=== PATIENT | female | born 1990 | race Caucasian/White ===

== ENCOUNTER 2019-10-27 15:10 | Inpatient (IN) ==
[2019-10-27] MEDS ORDERED: OXYTOCIN 30 UNITS/500 ML BAG IV PRN (16:04)
[2019-10-27 16:26] LABS: Hematocrit (blood only) 33.8 % (37-47); Hemoglobin 10.8 g/dL (12.0-16.0); Mean Corpuscular Hemoglobin 27.3 pg (25-34); Mean Corpuscular Volume 85.4 fL (80-100); Mean Platelet Volume 10.8 fL (7.4-10.4); Platelet Count 277 K/uL (130-400); RDW Coefficient of Variation 13.7 % (11.5-14.5); Red Blood Count 3.96 M/uL (4.2-5.4); White Blood Count 12.91 K/uL (4.8-10.8)
[2019-10-27] MEDS: LACTATED RINGER'S 1,000 ML IV PRN (23:30)
[2019-10-27] MEDS ORDERED: ePHEDrine sulfate 50 MG/ML AMP ONE (23:31)
[2019-10-27] MEDS ORDERED: fentaNYL citrate 100 MCG/2 ML VIAL ONE (23:31)
[2019-10-27] MEDS ORDERED: BUPIVACAINE 0.25% 30 ML VIAL ONE (23:31)
[2019-10-27] MEDS ORDERED: fentaNYL 2MCG/ML ROPIV 1.25MG/ML 100 ML BAG EPI ONE (23:32)
--- NOTE | 2019-10-27 23:55 | Anesthesiology Consultation ---
Date of Service October 27, 2019 Assessment & Plan ASA ASA2 Proposed Anesthesia Anesthesia Type: Labor Epidural Risk / Benefits Reviewed With: PT / POA / Parent / Guardian, Accepts Plan and Informed Consent Obtained History Height/Weight Height: 5 ft 2 in Weight: 70.307 kg Allergies Allergy/AdvReac Type Severity Reaction Status Date / Time No Known Allergies Allergy Verified 10/27/19 15:25 Medications Home Medications Medication Instructions Recorded Confirmed Last Taken vit-iron fum-folic ac tab 10/27/19 10/27/19 [ Vitamin] Active Medications Generic Name Dose Route Start Last Admin Trade Name Freq PRN Reason Stop Dose Admin Lactated Ringer's 1,000 mls @ 125 mls/hr 10/27/19 16:04 10/28/19 00:48 Lr IV 10/29/19 16:03 999 mls/hr .Q8H PRN Administration L&D Protocol Protocol Past Medical History Medical History Migraines Exercise / Class Metabolic Activity II 4-5 Yardwork/Stairs/Walk up hill Past Family History Family History Other No significant family history Past Anesthesia History No Hx of Anesthesia Complications and No Family Hx of Anesthesia Complications History of PONV No Hx of PONV and No Hx of Motion Sickness Social History Smoking Status: Never smoker Hx Alcohol Use: No Hx Substance Use: No Review of Systems denies fever/cough/ colds/ chest pain/ SOB/ LINDA Constitutional: no fever and no chills Respiratory: no cough and no dyspnea denies LINDA Cardiovascular: no chest pain and no dyspnea on exertion Physical Exam Vital Signs Last Vital Signs Temp 36.8 C 10/27/19 22:21 Pulse 95 H 10/28/19 00:08 Resp 18 10/27/19 20:29 BP 148/75 H 10/28/19 00:08 Pulse Ox 99 10/28/19 00:08 ENMT Mouth: no TMJ abnormality and no dentition abnormality Thyromental Distance: > or= 3.5 Finger Breadths Mallampati Class: II Neck neck extension not limited Respiratory normal respiratory effort; no respiratory distress Auscultation: lungs clear to auscultation bilaterally Cardiovascular Rate/Rhythm: regular rate and regular rhythm Neurologic moves all extremities Psychiatric Orientation: alert and oriented x 3 Testing Laboratory Results 10/27/19 16:16
[2019-10-28] MEDS: LACTATED RINGER'S 1,000 ML IV PRN ×2 (00:48→06:44)
[2019-10-28] MEDS ORDERED: DiphenhydrAMINE HCL 50 MG/ML VIAL IV PRN ×3 (01:01→10:53)
[2019-10-28] MEDS ORDERED: fentaNYL 2MCG/ML ROPIV 1.25MG/ML 100 ML BAG EPI PRN (01:01)
[2019-10-28] MEDS ORDERED: NALBUPHINE HCL INJ 10 MG/ML AMP IV PRN ×2 (01:01→10:53)
[2019-10-28] MEDS ORDERED: NALOXONE HCL 0.4 MG/1 ML VIAL/CARP IV PRN ×2 (01:01→10:53)
[2019-10-28] MEDS ORDERED: NALOXONE HCL 1 MG in SODIUM CHLORIDE 0.9% 1000ML 1,000 ML IV PRN ×2 (01:01→10:53)
[2019-10-28] MEDS ORDERED: ePHEDrine sulfate 50 MG/ML AMP IV PRN ×2 (01:01→10:53)
[2019-10-28] MEDS ORDERED: ONDANSETRON INJ 2 MG/ML 2 ML VIAL IV PRN ×3 (01:01→10:53)
[2019-10-28] MEDS ORDERED: OXYTOCIN 30 UNITS/500 ML BAG IV PRN (06:37)
[2019-10-28] MEDS ORDERED: AMPICILLIN 1,000 MG in SODIUM CHLOR 0.9% AD-VAN 50 ML IV ONE (07:00)
[2019-10-28] MEDS ORDERED: CITRIC ACID/SODIUM CITRATE 15 ML UDC ONE (08:42)
[2019-10-28] MEDS ORDERED: LIDOCAINE/EPINEPHRINE 2% 1:200,000 20 ML SDV ONE (08:47)
[2019-10-28] MEDS ORDERED: cefOXitin 2,000 MG in DEXTROSE 5% 50 ML IV ONE (09:00)
[2019-10-28] MEDS ORDERED: CITRIC ACID/SODIUM CITRATE 15 ML UDC PO ONE (09:00)
[2019-10-28 09:03] LABS: Hematocrit (blood only) 33.5 % (37-47); Mean Corpuscular Hemoglobin 27.4 pg (25-34); Mean Corpuscular Hgb Conc 32.8 g/dL (32-36); Mean Corpuscular Volume 83.5 fL (80-100); Mean Platelet Volume 10.7 fL (7.4-10.4); Platelet Count 297 K/uL (130-400); RDW Coefficient of Variation 13.8 % (11.5-14.5); RDW Standard Deviation 41.5 fL (36.4-46.3); Red Blood Count 4.01 M/uL (4.2-5.4); White Blood Count 22.83 K/uL (4.8-10.8)
[2019-10-28] MEDS ORDERED: PHENYLEPHRINE HCL 10 MG/ML VIAL ONE (09:07)
[2019-10-28] MEDS ORDERED: ePHEDrine sulfate 50 MG/ML AMP ONE (09:07)
[2019-10-28] MEDS ORDERED: MIDAZOLAM HCL 1 MG/ML 2ML VIAL ONE (09:16)
[2019-10-28] MEDS ORDERED: MoRPHine SULFATE PF 1 MG/ML 10 ML AMP/VIAL ONE (09:20)
[2019-10-28] MEDS ORDERED: fentaNYL citrate 100 MCG/2 ML VIAL ONE (09:26)
[2019-10-28] MEDS ORDERED: SUCCINYLCHOLINE 100MG/5ML SYR ONE (09:41)
[2019-10-28] MEDS ORDERED: OXYTOCIN 10 UNITS/ML VIAL ONE ×5 (09:41→10:13)
[2019-10-28] MEDS ORDERED: DEXAMETHASONE SOD INJ 4 MG/ML VIAL ONE (09:41)
[2019-10-28] MEDS ORDERED: ONDANSETRON INJ 2 MG/ML 2 ML VIAL ONE (09:41)
[2019-10-28] MEDS ORDERED: PROPOFOL IV EMULSION 10 MG/ML 20 ML VIAL IV ONE (09:41)
[2019-10-28] MEDS ORDERED: OXYTOCIN 10 UNITS/ML VIAL IM ONE (09:42)
[2019-10-28] MEDS ORDERED: KETOROLAC 30 MG/ML VIAL ONE (09:43)
[2019-10-28] MEDS ORDERED: MAGNESIUM HYDROXIDE SUSP 30 ML UDC PO PRN (09:57)
[2019-10-28] MEDS ORDERED: KETOROLAC 30 MG/ML VIAL IV PRN (09:57)
[2019-10-28] MEDS ORDERED: MEPERIDINE HCL 50 MG/ML CARP IV PRN (09:57)
[2019-10-28] MEDS ORDERED: DIPHTHERIA/TETANUS/PERTUSSIS 0.5 ML SYR/VIAL IM ONE (09:57)
[2019-10-28] MEDS ORDERED: SENNA 8.6 MG TAB PO PRN (09:57)
[2019-10-28] MEDS ORDERED: ZOLPIDEM TARTRATE 5 MG TAB PO PRN (09:57)
[2019-10-28] MEDS ORDERED: PROMETHAZINE HCL 25 MG in SODIUM CHLORIDE 0.9% 50 ML IV PRN (09:57)
[2019-10-28] MEDS ORDERED: BENZOCAINE 20% AER SPR 82.5 GM CAN EXT PRN (09:57)
[2019-10-28] MEDS ORDERED: HYDROCORTISONE ACETATE 25 MG SUPP PR PRN (09:57)
[2019-10-28] MEDS ORDERED: SUPERCREAM 0.870% 15 GM JAR EXT PRN (09:57)
--- NOTE | 2019-10-28 09:57 | Post Operative Brief Note ---
Immediate Post Op Note v1 Date of Surgery October 28, 2019 Pre & Post Diagnosis cephalopelvic Operation Date: 10/28/19 08:40 <No data on this case meets the specified criteria> cephalopelvic disproportion amnionitis I identified the patient and participated in the time-out.: Yes Procedure Operation Date: 10/27 p Section in LD - Nain Barrett MD Surgeon Nain Barrett MD Continuity Director Dr Carrasco Estimated Blood Loss 600 Findings Consistent with Post-Op Diagnosis Fluids 1200 ml Specimens placenta culture Drains Fountain Catheter Anesthesia Type General Complications none Disposition Accompanied Patient To Recovery: No Disposition: Recovery Room
[2019-10-28] MEDS ORDERED: LACTATED RINGER'S 1,000 ML IV SCH (10:00)
[2019-10-28 10:32] LABS: Basophils # (auto) 0.02 K/uL (0-0.2); Basophils % (auto) 0.1 %; Immature Granulocytes # (auto) 0.14 K/uL (0.00-0.02); Immature Granulocytes % (auto) 0.6 %; Lymphocytes # (auto) 1.65 K/uL (1.2-3.4); Lymphocytes % (auto) 7.2 %; Microcytosis Present; Monocytes # (auto) 1.27 K/uL (0.11-0.59); Monocytes % (auto) 5.6 %; Neutrophils # (auto) 19.75 K/uL (1.4-6.5); Neutrophils % (auto) 86.5 %
[2019-10-28] MEDS ORDERED: LACTATED RINGER'S 500 ML IV PRN (10:53)
[2019-10-28] MEDS ORDERED: ACETAMINOPHEN 1000 MG/100 ML IV IV PRN (10:53)
[2019-10-28] MEDS ORDERED: NALOXONE HCL 0.08 MG in SYRINGE 1.8 ML IV PRN (10:53)
[2019-10-28] MEDS ORDERED: MoRPHine SULFATE PF 1 MG/ML 10 ML AMP/VIAL EPI ONE (10:53)
[2019-10-28] MEDS ORDERED: HYDROmorphone INJ 0.5 MG/0.5 ML SYR IV PRN (10:53)
--- NOTE | 2019-10-28 10:56 | Anesthesia Procedure Note ---
Date of Service October 28, 2019 Anesthesia Post Epidural Note Vital Signs Vital Signs: Temp Pulse Resp BP Pulse Ox 38.1 C H 126 H 20 109/60 98 10/28/19 07:03 10/28/19 10:50 10/28/19 08:30 10/28/19 10:46 10/28/19 10:50 Pain Intensity Back: Pain Intensity: 6 Notes Mental Status: alert / awake / arousable and participated in evaluation Nausea / Vomiting: adequately controlled Pain: adequately controlled Airway Patency, RR, SpO2: stable & adequate BP & HR: stable & adequate Hydration State: stable & adequate Neuraxial Anesthesia: was administered and sensory block is resolving Anesthetic Complications: no major complications apparent and Pt Satisfied with anesthetic care Epidural: Removed without complications and With tip intact Notes: Epidural site clean, dry and intact. No signs of edema, erythema or bruising at insertion site. Pt instructed to request anesthesia if she has residual lower extremity numbness or if she develops lower extremity pain or weakness, back pain or headache.
--- NOTE | 2019-10-28 10:56 | Anesthesiology Progress Note ---
Date of Service October 28, 2019 Anesthesia Post Procedure Vital Signs Vital Signs: Temp Pulse Resp BP Pulse Ox 10/28/19 10:50 126 H 98 10/28/19 10:46 105 H 109/60 10/28/19 10:45 102 H 98 10/28/19 10:42 99 H 94 10/28/19 10:40 106 H 96 10/28/19 10:36 115 H 108/62 10/28/19 10:34 105 H 100 10/28/19 08:54 92 H 147/84 H 10/28/19 08:53 93 H 142/80 H 10/28/19 08:52 103 H 92 10/28/19 08:51 102 H 120/77 100 10/28/19 08:46 99 H 98 10/28/19 08:41 103 H 97 10/28/19 08:38 107 H 121/78 10/28/19 08:36 105 H 98 10/28/19 08:31 99 H 99 10/28/19 08:30 20 10/28/19 08:26 102 H 97 10/28/19 08:23 111 H 133/80 10/28/19 08:21 120 H 98 10/28/19 08:16 179 H 98 10/28/19 08:11 125 H 97 10/28/19 08:10 114 H 83 L 10/28/19 08:08 110 H 148/78 H 10/28/19 08:06 157 H 97 10/28/19 08:01 126 H 98 10/28/19 08:00 18 10/28/19 07:57 160 H 85 L 10/28/19 07:56 144 H 96 10/28/19 07:53 102 H 139/74 10/28/19 07:51 132 H 97 10/28/19 07:50 118 H 86 L 10/28/19 07:46 81 98 10/28/19 07:44 118 H 92 10/28/19 07:41 157 H 98 10/28/19 07:39 107 H 87 L 10/28/19 07:38 109 H 132/65 10/28/19 07:36 119 H 99 10/28/19 07:31 107 H 98 10/28/19 07:30 22 10/28/19 07:26 152 H 99 10/28/19 07:23 162 H 137/68 05/20 07:22 120 H 89 L 10/28/19 07:21 112 H 98 10/28/19 07:16 123 H 98 10/28/19 07:15 118 H 89 L 10/28/19 07:11 95 H 98 10/28/19 07:09 105 H 91 10/28/19 07:08 100 H 124/77 10/28/19 07:06 92 H 98 10/28/19 07:03 38.1 C H 16 10/28/19 07:01 173 H 77 L 10/28/19 06:56 132 H 98 10/28/19 06:51 105 H 98 10/28/19 06:46 147 H 99 10/28/19 06:41 153 H 98 10/28/19 06:37 125 H 131/75 10/28/19 06:36 150 H 98 10/28/19 06:31 107 H 98 10/28/19 06:29 111 H 90 10/28/19 06:26 103 H 97 10/28/19 06:23 115 H 138/72 10/28/19 06:22 134 H 94 10/28/19 06:21 91 H 98 10/28/19 06:17 105 H 87 L 10/28/19 06:16 92 H 98 10/28/19 06:11 128 H 93 10/28/19 06:10 38.4 C H 24 10/28/19 06:09 100 H 137/63 10/28/19 06:06 104 H 97 10/28/19 06:04 102 H 81 L 10/28/19 06:01 106 H 98 10/28/19 05:59 101 H 74 L 10/28/19 05:56 97 H 97 10/28/19 05:53 105 H 132/76 10/28/19 05:52 150 H 93 10/28/19 05:51 147 H 96 10/28/19 05:46 123 H 84 L 10/28/19 05:41 104 H 97 10/28/19 05:40 37.5 C 24 10/28/19 05:38 130 H 127/84 10/28/19 05:36 107 H 97 10/28/19 05:31 116 H 97 10/28/19 05:28 120 H 93 05/19/20 05:26 109 H 97 10/28/19 05:23 169 H 171/76 H 93 0520 05:21 129 H 97 20 05:16 117 H 97 20 05:12 133 H 132/88 05 05:11 150 H 97 10/28/19 05:10 37.5 C 22 10/28/19 05:06 114 H 98 10/28/19 05:00 132 H 97 10/28/19 04:55 118 H 97 10/28/19 04:48 109 H 98 10/28/19 04:43 129 H 96 10/28/19 04:38 112 H 98 10/28/19 04:33 111 H 97 10/28/19 04:30 37.0 C 18 10/28/19 04:28 129 H 131/59 L 97 10/28/19 04:23 115 H 167/133 H 99 10/28/19 04:18 150 H 98 10/28/19 04:17 146 H 91 10/28/19 04:13 122 H 100 10/28/19 04:08 102 H 99 10/28/19 04:06 99 H 91 10/28/19 04:03 92 H 99 10/28/19 04:00 105 H 112/74 05 03:58 123 H 98 10/28/19 03:53 113 H 100 10/28/19 03:48 109 H 98 10/28/19 03:43 94 H 122/63 100 0520 03:38 83 97 10/28/19 03:33 78 99 0520 03:30 36.9 C 18 10/28/19 03:28 73 98 0519/20 03:27 36.8 C 16 10/28/19 03:23 71 113/73 98 0519/20 03:18 69 98 0519/20 03:13 79 99 0519/20 03:09 69 110/68 05/20 03:08 70 99 05/20 03:03 66 98 05/20 02:58 77 99 0519/20 02:54 76 120/77 0519/20 02:53 73 98 0519/20 02:48 69 98 0519/20 02:43 84 98 05/19/20 02:39 71 114/69 05/19/20 02:38 68 97 05/19/20 02:33 83 98 05/19/20 02:28 73 99 05/19/20 02:23 73 105/62 97 05/19/20 02:18 67 98 05/19/20 02:13 68 98 05/19/20 02:08 65 104/63 98 05/19/20 02:03 71 98 05/19/20 01:58 71 99 05/19/20 01:54 68 109/65 05/19/20 01:53 67 99 05/19/20 01:48 69 99 05/19/20 01:43 68 99 05/19/20 01:38 64 106/63 98 05/19/20 01:33 64 98 05/19/20 01:30 37.0 C 16 0520 01:28 68 98 05/19/20 01:23 68 102/57 L 98 05/19/20 01:18 65 99 05//20 01:13 67 100 05/20 01:08 66 103/56 L 98 05/20 01:03 66 98 05/19/20 00:58 68 98 05/19/20 00:53 75 106/57 L 98 10/27/20 00:48 72 99 05/20 00:43 68 99 05/20 00:38 88 133/67 100 05/19/20 00:33 76 100 05/19/20 00:30 36.9 C 16 20 00:28 85 100 05/19/20 00:23 71 132/60 100 0519/20 00:21 83 139/67 05/19/20 00:18 101 H 100 0520 00:16 147/92 H 0519/20 00:14 93 H 147/89 H 0519/20 00:13 78 100 0519/20 00:12 97 H 136/83 0520 00:08 95 H 148/75 H 99 0519/20 00:06 91 H 163/83 H 0519/20 00:03 83 100 0519/20 00:01 83 163/79 H 0518/20 23:58 97 H 97 0518/20 23:57 90 94 05/18/20 23:56 81 162/84 H 10/27/19 23:53 88 100 10/27/19 23:48 82 99 10/27/19 23:43 85 160/73 H 99 10/27/19 23:39 83 91 10/27/19 23:38 80 112/68 100 10/27/19 23:33 78 100 10/27/19 23:02 100 H 149/97 H 10/27/19 22:55 87 173/92 H 10/27/19 22:21 36.8 C 10/27/19 20:29 36.9 C 18 127/70 10/27/19 15:26 36.7 C 18 10/27/19 15:17 77 113/76 Pain Intensity Back: Pain Intensity: 6 Transfer of Care Handoff Completed per policy Notes Mental Status: alert / awake / arousable and participated in evaluation Patient Amnestic to Procedure: Yes Nausea / Vomiting: adequately controlled Pain: adequately controlled Airway Patency, RR, SpO2: stable & adequate BP & HR: stable & adequate Hydration State: stable & adequate Anesthetic Complications: no major complications apparent and Pt Satisfied with anesthetic care
[2019-10-28] MEDS ORDERED: SODIUM CHLORIDE 0.9% 1000ML 1,000 ML IV SCH (11:00)
[2019-10-28] MEDS ORDERED: DC INTRASPINAL MORPHINE SCH (11:00)
[2019-10-28] MEDS ORDERED: NO NARCOTICS OR SEDATIVES SCH (11:00)
[2019-10-28] MEDS: OXYTOCIN 20 UNITS in LACTATED RINGER'S 1,000 ML IV SCH ×2 (12:55→21:46)
--- NOTE | 2019-10-28 13:05 | Operative Report (OR) ---
DATE OF OPERATION: 10/28/2019 PROCEDURE: Primary low segment section. INDICATIONS FOR SURGERY: Cephalopelvic disproportion, suspected amnionitis. PREOPERATIVE DIAGNOSIS: Cephalopelvic disproportion at 39 weeks 3 days and amnionitis. POSTOPERATIVE DIAGNOSES: Same, delivered a live male . SURGEON: Dr. Barrett. DIKE SUPERVISOR: Giacomo Little. ESTIMATED BLOOD LOSS: 600 mL ANESTHESIA: Spinal epidural combined with general. OPERATIVE FINDINGS AND PROCEDURE: The patient was brought to the OR table, correctly identified by armband and conversation. Compression stockings and Fountain catheter was inserted aseptically and connected by gravity drainage. The epidural was topped off. Lower abdomen was painted with an alcohol based sterilizing solution, draped in the usual sterile fashion. Despite having topped off the epidural, we did not get inadequate pain relief to do the operation, so we went to general anesthesia and intubational anesthesia. We then made a Pfannenstiel incision, carried it down to the anterior fascia by sharp dissection. Hemostasis was secured by electrocauterization. Fascia was incised transversely from the underlying muscle by blunt and sharp dissection. Recti muscles were in the midline exposing peritoneum which was carefully raised and entered. Incision was then made above the vesicouterine fold. Bladder was undermined bluntly and pushed out of the operative field. Lower uterine segment was scored. Brush Hand's hand was inserted into the pelvis. The head was wedged in right occiput transverse position and had to be rotated and then the head came out. The body came out without difficulty. breathing and cried spontaneously, was attended to by the organization development consultant, Dr. Mora who was scrubbed and present at the time of delivery. Cord blood was taken. Placenta was removed manually. The shiny side of the placenta was cultured. Uterus, tubes, and ovaries were brought out through the incision. Uterus was cleansed with a clean sponge. Ten units of Pitocin was injected into the myometrium. A chromic gut was used to approximate the myometrial layer with a continuous interlocking suture. Then a layer over this was used to approximate the fascial layer with a heavy duty Vicryl. Also one [id number] Vicryl was used to place on the right side to complete the hemostatic process. Following this, incision looked good. Peritoneal edges were then restored with a continuous 3-0 chromic, restored the integrity of the vesicouterine fold. The pelvis was cleansed of all blood clots and debris. Tubes and ovaries inspected and found to be normal. Uterus, tubes, and ovaries were reinserted into the abdomen. Careful anatomical approximation of the anterior abdominal wall was performed. Peritoneum was closed with a mattress suture of chromic catgut. Recti muscles approximated with interrupted [id number] suture of chromic catgut. The fascia was closed with continuous interlocking suture of Vicryl on each side, tied in the midline. SubQ was approximated with a running plain. Skin edge approximated with staple clips. I attest to the content of the Intraoperative Record and any orders documented therein. Any exception s are noted below.
--- NOTE | 2019-10-28 13:08 | History and Physical Report ---
DATE OF ADMISSION: 10/28/2019 CHIEF COMPLAINT: Intrauterine at term, arrest of labor secondary to cephalopelvic disproportion. HISTORY OF PRESENT ILLNESS: The patient is a 28-year-old 1, para 0. General health is good. No known drug allergies. Uneventful course. Due date was 10/29/2019. She was admitted in spontaneous labor. Eventually she had epidural anesthesia for pain control. She then had artificial rupture of the membranes when she was about 7 cm, fluid was clear. She had her good regular contractions and she started to push. She pushed for approximately 4 hours. She did develop a temperature during this time. A cath urine was taken for culture and she was given 2 grams of ampicillin. Her tachycardia came down. She had good variability; however, she had a mid pelvis arrest. There was a large amount of molding. You could see some of the head, but every time she stopped pushing, the head disengaged from the mid pelvis. After pushing for over 4 hours without significant progress, we made a diagnosis of cephalopelvic disproportion secondary to mid pelvis arrest. She was scheduled for primary low segment section. PAST MEDICAL HISTORY: No known drug allergies. No previous surgery. Medical history: Rheumatic fever, heart disease, heart murmur, diabetes, tuberculosis. SOCIAL HISTORY: No smoking. No excessive alcohol intake. Works for [employer]. FAMILY HISTORY: Mom is 65, has high blood pressure, was diagnosed with breast cancer 5 years ago. Father is 65 in good health. One sister in good health. REVIEW OF SYSTEMS: HEAD: No symptoms of frequent or severe headaches. EYES: No symptoms of blurred vision, double vision. EARS: No history of frequent ear infections. PHYSICAL EXAMINATION: GENERAL: Well-developed, well-nourished 28-year-old white female, alert, oriented x3, in intermittent periods of distress due to contractions, appears to be exhausted from pushing. HEART: Had regular rhythm. LUNGS: Clear to auscultation and percussion. ABDOMEN: Revealed an estimated weight possibly of over 8 pounds. BACK: There was no CVA tenderness. EXTREMITIES: There was no calf tenderness. PELVIC: Revealed a large amount of molding in a right occiput transverse position. IMPRESSIONS OF THIS CASE: Intrauterine at term, possible early amnionitis, an arrest of labor secondary to cephalopelvic disproportion.
[2019-10-28] MEDS: SIMETHICONE 80 MG CHEW PO SCH ×3 (16:55→21:28)
[2019-10-28] MEDS: KETOROLAC 30 MG/ML VIAL IV PRN (19:44)
[2019-10-28] MEDS: DOCUSATE SODIUM 100 MG CAP PO SCH (21:29)
[2019-10-29] MEDS: KETOROLAC 30 MG/ML VIAL IV PRN (03:35)
[2019-10-29] MEDS ORDERED: CITRIC ACID/SODIUM CITRATE 15 ML UDC PO SCH (06:00)
[2019-10-29 07:02] LABS: Basophils # (auto) 0.02 K/uL (0-0.2); Basophils % (auto) 0.1 %; Eosinophils # (auto) 0.02 K/uL (0-0.5); Eosinophils % (auto) 0.1 %; Hematocrit (blood only) 25.3 % (37-47); Hemoglobin 8.1 g/dL (12.0-16.0); Immature Granulocytes % (auto) 0.5 %; Lymphocytes # (auto) 1.65 K/uL (1.2-3.4); Lymphocytes % (auto) 8.1 %; Mean Corpuscular Hemoglobin 27.5 pg (25-34); Mean Corpuscular Volume 85.8 fL (80-100); Mean Platelet Volume 10.6 fL (7.4-10.4); Monocytes # (auto) 1.53 K/uL (0.11-0.59); Monocytes % (auto) 7.5 %; Neutrophils # (auto) 17.09 K/uL (1.4-6.5); Neutrophils % (auto) 83.7 %; Platelet Count 216 K/uL (130-400); RDW Standard Deviation 43.2 fL (36.4-46.3); Red Blood Count 2.95 M/uL (4.2-5.4); White Blood Count 20.41 K/uL (4.8-10.8)
[2019-10-29] MEDS: DOCUSATE SODIUM 100 MG CAP PO SCH ×2 (07:31→20:56)
[2019-10-29] MEDS: FERROUS SULFATE 325 MG TAB PO SCH (07:31)
[2019-10-29] MEDS: PRENATAL VITAMIN 1 TAB PO SCH (07:31)
[2019-10-29] MEDS: SIMETHICONE 80 MG CHEW PO SCH ×4 (07:31→22:24)
[2019-10-29] MEDS: OXYCODONE/ACETAMINOPHEN 5mg/325mg TAB PO PRN ×4 (07:32→19:37)
[2019-10-29] MEDS: IBUPROFEN 600 MG TAB PO PRN ×4 (07:33→19:36)
--- NOTE | 2019-10-29 08:23 | Obstetrical Progress Note ---
Date of Service October 29, 2019 Assessment & Plan Admission and Anticipated Discharge Date Admission Date: October 27, 2019 Physical Exam Physical Exam: abdomen soft and non tender passing flatus no calf tenderness ambulating well vaginal bleeding is scant hgb 8.1 Results & Data ([facility]) Vital Signs (Past 12 Hours) Vital Signs Temp Pulse Resp BP Pulse Ox 10/29/19 05:00 18 97 10/29/19 04:40 18 96 10/29/19 03:30 36.8 C 77 18 92/54 L 97 10/29/19 02:30 18 97 10/29/19 01:30 18 97 10/29/19 00:40 18 98 10/28/19 23:45 36.7 C 87 18 92/54 L 97 10/28/19 22:45 18 97 10/28/19 21:30 18 97 10/28/19 20:30 18 98
--- NOTE | 2019-10-29 09:11 | Anesthesiology Progress Note ---
Date of Service October 29, 2019 Anesthesia Post Procedure Vital Signs Vital Signs: Temp Pulse Pulse Resp BP BP Pulse Ox 10/29/19 07:40 97.9 F 80 18 102/64 97 10/29/19 05:00 18 97 10/29/19 04:40 18 96 10/29/19 03:30 98.2 F 77 18 92/54 L 97 10/29/19 02:30 18 97 10/29/19 01:30 18 97 10/29/19 00:40 18 98 10/28/19 23:45 98.1 F 87 18 92/54 L 97 10/28/19 22:45 18 97 10/28/19 21:30 18 97 10/28/19 20:30 18 98 10/28/19 19:30 98.6 F 97 H 18 109/61 98 10/28/19 17:55 18 97 10/28/19 16:35 16 97 10/28/19 15:30 97.9 F 100 H 18 95 10/28/19 15:00 16 97 10/28/19 14:00 18 98 10/28/19 13:00 98.2 F 79 18 107/65 98 10/28/19 12:36 84 119/59 L 10/28/19 12:35 83 97 10/28/19 12:33 98.2 F 16 10/28/19 12:30 75 98 10/28/19 12:26 82 109/58 L 10/28/19 12:25 78 98 10/28/19 12:20 85 99 10/28/19 12:17 99 H 94 10/28/19 12:16 85 111/58 L 10/28/19 12:15 83 98 10/28/19 12:10 81 99 10/28/19 12:06 85 125/58 L 10/28/19 12:05 78 98 10/28/19 12:03 16 10/28/19 12:01 96 H 118/68 10/28/19 12:00 96 H 97 10/28/19 11:55 77 99 10/28/19 11:50 78 98 10/28/19 11:46 164 H 107/57 L 10/28/19 11:45 83 98 10/28/19 11:40 87 99 10/28/19 11:36 173 H 108/57 L 10/28/19 11:35 86 98 10/28/19 11:33 97.7 F 16 10/28/19 11:30 89 97 10/28/19 11:26 92 H 105/71 10/28/19 11:25 91 H 97 10/28/19 11:23 18 10/28/19 11:20 103 H 97 10/28/19 11:16 90 117/65 10/28/19 11:15 97 H 97 10/28/19 11:13 18 10/28/19 11:10 99 H 96 10/28/19 11:08 113 H 132/67 10/28/19 11:05 112 H 96 10/28/19 11:03 18 10/28/19 11:00 103 H 97 10/28/19 10:57 104 H 118/63 10/28/19 10:55 110 H 97 10/28/19 10:53 18 10/28/19 10:50 126 H 98 10/28/19 10:46 105 H 109/60 10/28/19 10:45 102 H 98 10/28/19 10:43 17 10/28/19 10:42 99 H 94 10/28/19 10:40 106 H 96 10/28/19 10:36 115 H 108/62 10/28/19 10:34 105 H 100 10/28/19 10:33 97.7 F 17 Pain Intensity Back: Pain Intensity: 6 Upper Medial Abdomen: Pain Intensity: 1 Transfer of Care Handoff Completed per policy Notes Mental Status: alert / awake / arousable and participated in evaluation Patient Amnestic to Procedure: Yes Nausea / Vomiting: adequately controlled Pain: adequately controlled Airway Patency, RR, SpO2: stable & adequate BP & HR: stable & adequate Hydration State: stable & adequate Anesthetic Complications: no major complications apparent and Pt Satisfied with anesthetic care
[2019-10-29] MEDS ORDERED: bisacodyL 5 MG TABEC PO SCH (20:00)
[2019-10-30] MEDS: IBUPROFEN 600 MG TAB PO PRN ×4 (00:28→13:14)
[2019-10-30] MEDS: OXYCODONE/ACETAMINOPHEN 5mg/325mg TAB PO PRN ×4 (00:28→13:13)
[2019-10-30 06:31] LABS: Hematocrit (blood only) 25.5 % (37-47); Hemoglobin 8.1 g/dL (12.0-16.0)
[2019-10-30] MEDS: SIMETHICONE 80 MG CHEW PO SCH ×2 (08:43→13:13)
[2019-10-30] MEDS: DOCUSATE SODIUM 100 MG CAP PO SCH (08:43)
[2019-10-30] MEDS: FERROUS SULFATE 325 MG TAB PO SCH (08:44)
[2019-10-30] MEDS: PRENATAL VITAMIN 1 TAB PO SCH (08:47)
--- NOTE | 2019-10-30 08:52 | Obstetrical Progress Note ---
Date of Service October 30, 2019 Assessment & Plan Admission and Anticipated Discharge Date Admission Date: October 27, 2019 Physical Exam Physical Exam: abdomen soft and non tender incision is clean and dry no calf tenderness ambulating well vaginal bleeding is scant hgb 8.1 Results & Data ([facility]) Vital Signs (Past 12 Hours) Vital Signs Temp Pulse Resp BP Pulse Ox 10/29/19 23:55 36.8 C 86 16 109/67 97
--- NOTE | 2019-10-30 09:54 | Discharge Summary (DS) ---
Mrs. Irene was admitted in spontaneous labor at term. Eventually, she received epidural for pain control. Her membranes were ruptured surgically. Fluid was clear and she went to full dilatation. Her contractions were augmented with IV Pitocin and she had good regular labor pattern; however, she had a mid pelvis arrest and had cephalopelvic disproportion. She also had an elevated temperature prior to delivery. A cath urine was taken for culture and she was given ampicillin 2 grams. Following this about an hour or so later she was taken to the OR where she underwent a primary low segment section. She was given Mefoxin preoperatively in addition to the ampicillin, she already had. She had epidural, but it was not adequate for , so she underwent general. Under general anesthesia, a live was delivered who is in good condition. Placental culture was taken at that time. Eventually, the urine culture and the placental culture did not grow out anything. Postoperatively, she did not get any additional antibiotics and she remained afebrile. Her bowel sounds returned promptly. Her preoperative hemoglobin was 11. Postoperatively, it went to 8.1 and remained stable at that over 2 days. At the time of discharge, she was ambulating well, eating well, incision was clean and dry. Vaginal bleeding was scant and hemoglobin as previously stated was 8.1. She was not symptomatic with any dizziness and she was given Percocet and Motrin for pain control and discharged to be followed in home and office and was told to return for removal of debra and to call if she had temperature over 100 or any heavy bleeding.
[2019-10-30] MEDS ORDERED: bisacodyL 10 MG SUPP PR PRN (09:57)
== END 2019-10-30 14:50 | disposition home or self-care (01) | DRG 787 ==
LOC: OPB 15:10 → 4S1 15:13 → 4S2 10-28 13:45